=== PATIENT | female | born 2000 | race Caucasian/White ===

== ENCOUNTER 2024-03-02 11:37 | Inpatient (IN) | payer BC ==
[2024-03-11] MEDS ORDERED: CARBOPROST TROMETHAMINE 250 MCG/ML 1 ML AMP IM PRN (06:17)
[2024-03-11] MEDS ORDERED: OXYTOCIN 10 UNIT/ML 1 ML VIAL IM PRN (06:17)
[2024-03-11] MEDS ORDERED: miSOPROStoL 200 MCG TAB PO PRN (06:17)
[2024-03-11] MEDS ORDERED: METHYLERGONOVINE 0.2 MG/ML 1 ML AMP IM PRN (06:17)
[2024-03-11] MEDS ORDERED: TRANEXAMIC 1,000 MG/100ML-NACL 1,000 MG in EMPTY BAG 1 BAG IV PRN (06:17)
[2024-03-11] MEDS ORDERED: LIDOCAINE 0.5% (PF) 5 MG/ML (50 ML SDV) SQ PRN (06:17)
[2024-03-11] MEDS ORDERED: TERBUTALINE 1 MG/ML VIAL SQ PRN (06:17)
[2024-03-11] MEDS: OXYTOCIN 30 UNITS/500 ML NS 30 UNIT in SALINE 1 500ML.BAG IV SCH (06:33)
[2024-03-11] MEDS: LACTATED RINGERS 1,000 ML IV SCH (06:33)
[2024-03-11 06:40] LABS: Basophils % (A) 0 %; Eosinophils # (A) 0.2 k/uL (0-0.7); Eosinophils % (A) 2 %; HCT 44.3 % (34.0-46.0); HGB 14.8 gm/dL (11.4-16.0); Lymphocytes % (A) 15 %; MCH 28.3 pg (25.0-35.0); MCHC 33.4 g/dL (31.0-37.0); MCV 84.8 fL (80.0-100.0); Monocytes # (A) 0.6 k/uL (0-1.0); Monocytes % (A) 4 %; Neutrophils # (A) 10.2 k/uL (1.3-7.7); Neutrophils % (A) 77 %; Platelet Count 213 k/uL (150-450); RBC 5.22 m/uL (3.80-5.40); RDW 15.5 % (11.5-15.5); WBC 13.3 k/uL (3.8-10.6)
[2024-03-11] MEDS: PENICILLIN G POTASSIUM 5,000,000 UNIT in DEXTROSE 5% IN WATER 100 ML IVPB STA (07:00)
[2024-03-11] MEDS: PENICILLIN G POTASSIUM 2,500,000 UNIT in DEXTROSE 5% IN WATER 100 ML IVPB SCH (10:28)
--- NOTE | 2024-03-11 11:50 | P.HPOB ---
History of Present Illness H&P Date: 03/11/24 Chief Complaint: Induction of labor for post-dates Ms. Solorio is a 24 year old at 41 weeks and 2 days with EDC of 03/02/2024 by LMP consistent with 8 week US who presents to labor and delivery for induction of labor for post-dates . The has been essentially uncomplicated. A growth US at 32 weeks estimated the fetus to be in the 74%ile. work-up: Blood type A positive, antibody screen negative, rubella NON- IMMUNE, VDRL non-reactive, HBsAg negative, HIV negative, HCV Ab negative, gonorrhea negative, chlamydia negative, 1 hour GTT abnormal > 3 hour GTt within normal limits, GBS positive. s/p TDap and Flu vaccines. Past Medical History Additional Past Medical History / Comment(s): 2012 blood transfusion for heavy period. History of Any Multi-Drug Resistant Organisms: None Reported Additional Past Surgical History / Comment(s): Dwarf teeth Past Anesthesia/Blood Transfusion Reactions: No Reported Reaction Past Psychological History: No Psychological Hx Reported Smoking Status: Never smoker Past Drug Use History: None Reported Medications and Allergies Home Medications Medication Instructions Recorded Confirmed Type Aspirin 81 mg PO DAILY 03/11/24 03/11/24 History Folic Acid 1 mg PO DAILY 03/11/24 03/11/24 History Vit No.179/Iron/Folic 1 each PO DAILY 03/11/24 03/11/24 History [ Tablet] Allergies Allergy/AdvReac Type Severity Reaction Status Date / Time No Known Allergies Allergy Verified 03/11/24 08:26 Exam Vital Signs Temp Pulse Resp BP Pulse Ox 03/11/24 06:15 97.6 F 119 H 16 128/81 98 Intake and Output 03/10/24 03/11/24 03/11/24 22:59 06:59 14:59 Other: Weight 116.12 kg Focused physical exam is performed. This is a healthy-appearing in no apparent distress. Breathing is non-labored. Abdomen is gravid and non-tender. Cervical exam is 3 cm, 70 effacement, -2fetal station. AROM is undertaken with clear fluid noted. Extremities non-tender and non-edematous. heart tones are Category I and tocometer is graphing contractions every 2-4 minutes. Results Result Diagrams: 03/11/24 06:17 Abnormal Lab Results - Last 24 Hours (Table) 03/11/24 Range/Units 06:17 WBC 13.3 H (3.8-10.6) k/uL Neutrophils # 10.2 H (1.3-7.7) k/uL Assessment and Plan Assessment: 24 year old at 41 weeks and 2 days presenting for induction of labor Plan: Admit, NPO, pitocin per protocol, epidural prn, continuous EFM and tocometer, c lose monitoring of patient. Anticipate vaginal delivery. Time with Patient: Less than 30
[2024-03-11] MEDS ORDERED: fentaNYL (PF) 50 MCG/ML 5 ML AMP ONE (14:32)
[2024-03-11] MEDS ORDERED: SODIUM CHLORIDE 0.9% 250 ML BAG ONE (14:32)
[2024-03-11] MEDS ORDERED: ROPIVACAINE 5 MG/ML 30 ML VIAL ONE (14:32)
[2024-03-11] MEDS ORDERED: ZOLPIDEM 5 MG TAB PO PRN (22:57)
[2024-03-11] MEDS ORDERED: diphenhydrAMINE 25 MG CAP PO PRN (22:57)
[2024-03-11] MEDS ORDERED: HYDROCORTISONE 2.5% RECTAL CREAM 30 GM TUBE RECTAL PRN (22:57)
[2024-03-11] MEDS ORDERED: diphenhydrAMINE 50 MG CAP PO PRN (22:57)
[2024-03-11] MEDS ORDERED: LANOLIN CREAM 1 GM TUBE TOPICAL PRN (22:57)
[2024-03-11] MEDS ORDERED: BENZOCAINE/MENTHOL SPRAY 1 GM/SPRAY AEROSOL TOPICAL PRN (22:57)
[2024-03-11] MEDS ORDERED: diphenhydrAMINE 50 MG/ML 1 ML VIAL IVP PRN ×2 (22:57)
[2024-03-11] MEDS ORDERED: SIMETHICONE 80 MG CHEWABLE PO PRN (22:57)
--- NOTE | 2024-03-11 23:02 | P.PROBDLV ---
Vaginal Delivery Note - . Vaginal Delivery Note: DATE OF SERVICE: 03/11/2024 PROCEDURE: Normal Vaginal Delivery ATTENDING: Dr. Nohemy Steiner MD ESTIMATED BLOOD LOSS: 200 mL FINDINGS: VFI, Apgars 8/9. Weight 9 pounds and 1 ounce (4115 grams) PROCEDURE: Ms. Solorio is a 24 year old at 41 weeks and 2 days presenting to labor and delivery for induction of labor for post-dates . The has been essentially uncomplicated. For further details, please review the admitting H&P. The patient was admitted and pitocin was titrated per protocol. PCN G was administered for GBS prophylaxis. AROM was performed at 1136 revealing clear amniotic fluid. The patient received epidural anesthesia per her request. The patient was completely dilated at 1936. With pushing, the fetus initially had Category II heart tones that did improve with further decent. The patient pushed effectively and delivered a viable female infant at 2231. The was placed on the maternal abdomen and bulb suctioned. The infant was noted to be spontaneously crying. Cord was clamped and cut after a 30-second delay. The infant was handed off to the pediatric team. Placenta was delivered whole with gentle cord traction at 2234. Oxytocin was started to facilitate uterine tone. Uterine fundus was found to be firm and below the umbilicus upon fundal massage. Thorough examination of the cervix, vagina, periurethral area, and perineum revealed a second degree perineal laceration. The laceration was infiltrated with lidocaine and repaired with 2-0 Vicryl in the usual fashion. The patient is stable and allowed to begin the bonding process.
[2024-03-12] MEDS: IBUPROFEN 600 MG TAB PO PRN (04:39)
--- NOTE | 2024-03-12 06:13 | P.PNOBGVD ---
Subjective - Subjective Principal diagnosis: s/p vaginal delivery Interval history: The patient is doing well this morning and had no acute events overnight. She has no complaints this morning. She reports minimal lochia, passing flatus, voiding without difficulty, ambulating, and eating/drinking without nausea or vomiting. She is her without difficulty. She denies chest pain, shortness of breathing, fevers, or chills overnight. She denies pain or swelling in the legs. Patient reports: Reports appetite normal, Reports voiding normally, Reports pain well controlled, Reports ambulating normally : doing well, nursing well Objective - Latest Vital Signs Latest vital signs: Vital Signs Temp Pulse Resp BP BP Pulse Ox 03/12/24 04:00 98.2 F 98 18 142/90 03/12/24 00:55 97.7 F 101 H 16 119/65 100 03/12/24 00:40 97.9 F 88 16 130/81 97 03/12/24 00:25 104 H 16 128/71 97 03/12/24 00:10 98.1 F 89 18 128/71 97 03/11/24 23:55 97.8 F 92 18 125/64 98 03/11/24 23:40 88 16 121/66 99 03/11/24 23:26 98.0 F 103 H 16 129/66 99 03/11/24 23:11 97.9 F 102 H 16 129/76 97 03/11/24 06:15 97.6 F 119 H 16 128/81 98 Intake and Output 03/11/24 03/11/24 03/12/24 14:59 22:59 06:59 Intake Total 32.033 167 Output Total 50 350 Balance -17.967 -183 Intake: Intake, IV Titration 32.033 167 Amount Oxytocin 30 Units/500 ml 32.033 167 Ns 30 unit In Saline 1 500ml.bag @ Per Protocol IV .Q0M [facility] Rx#:[id number] Output: Urine 50 50 Estimated Blood Loss 200 Output, Quantitative 100 Blood Loss Other: # Voids 1 - Exam Extremities: Present: normal Abdomen: Present: normal appearance, soft Uterus: Present: normal, firm - Labs Labs: Abnormal Lab Results - Last 24 Hours (Table) 03/11/24 Range/Units 06:17 WBC 13.3 H (3.8-10.6) k/uL Neutrophils # 10.2 H (1.3-7.7) k/uL Assessment and Plan Assessment: 24 year old now PPD#1 s/p normal vaginal delivery Plan: 1. . Patient meeting all milestones appropriately. 2. Viable female . Doing well at bedside, latching well. Dispo: Anticipate discharge home tomorrow.
[2024-03-12] MEDS: SENNOSIDES-DOCUSATE SODIUM 1 EACH TAB PO SCH (08:33)
[2024-03-12 08:47] LABS: Basophils % (A) 0 %; Eosinophils # (A) 0.1 k/uL (0-0.7); Eosinophils % (A) 0 %; HCT 41.3 % (34.0-46.0); HGB 13.6 gm/dL (11.4-16.0); Lymphocytes # (A) 1.7 k/uL (1.0-4.8); Lymphocytes % (A) 10 %; MCH 28.4 pg (25.0-35.0); MCHC 32.9 g/dL (31.0-37.0); MCV 86.1 fL (80.0-100.0); Mean Platelet Volume 10.3; Monocytes # (A) 0.7 k/uL (0-1.0); Monocytes % (A) 4 %; Neutrophils # (A) 13.9 k/uL (1.3-7.7); Neutrophils % (A) 84 %; Platelet Count 190 k/uL (150-450); RBC 4.79 m/uL (3.80-5.40); RDW 15.3 % (11.5-15.5); WBC 16.5 k/uL (3.8-10.6)
[2024-03-12 09:35] VITALS: RESP 16
[2024-03-12] MEDS: MEASLES-MUMPS-RUBELLA VACC/PF 12,500 UNIT/0.5 ML VIAL SQ ONE (15:35)
[2024-03-12] MEDS: ACETAMINOPHEN TAB 325 MG TAB PO PRN (19:56)
--- NOTE | 2024-03-13 09:10 | P.DS ---
Providers Date of admission: 03/11/24 06:04 Expected date of discharge: 03/13/24 Attending physician: Nohemy Steiner MD Primary care physician: Stated None Hospital Course: Ms. Solorio is a 24 year old now PPD#2 s/p normal vaginal delivery with second degree perineal lacaeration repaired in the normal fashion. The patient is doing well this morning and had no acute events overnight. She has no complaints this morning. She reports minimal lochia, passing flatus, voiding without difficulty, ambulating, and eating/drinking without nausea or vomiting. is currently in the nursery for suspected infection, receiving IV a ntibiotics and awaiting blood culture. She denies chest pain, shortness of breathing, fevers, or chills overnight. She denies pain or swelling in the legs. restrictions are reviewed with the patient including pelvic rest for 6 weeks. The patient is encouraged to call the office if she experiences any heavy bleeding, foul-smelling discharge, breast complaints, or any if she has any other concerns. She will follow up in the office in 6 weeks for postoperative exam. She plans to take Motrin and Tylenol OTC as needed for pain. All questions are answered. Assessment: 24 year old now PPD#2 s/p normal vaginal delivery Patient Condition at Discharge: Good Plan - Discharge Summary New Discharge Prescriptions: No Action Folic Acid 1 mg PO DAILY Aspirin 81 mg PO DAILY Vit No.179/Iron/Folic [ Tablet] 1 each PO DAILY Discharge Medication List Aspirin 81 mg PO DAILY 03/11/24 [History] Folic Acid 1 mg PO DAILY 03/11/24 [History] Vit No.179/Iron/Folic [ Tablet] 1 each PO DAILY 03/11/24 [History] Follow up Appointment(s)/Referral(s): Nohemy Steiner MD [STAFF PHYSICIAN] - 04/22/24 1:45 pm Activity/Diet/Wound Care/Special Instructions: Instructions 1. Do not begin any exercise program for 3 weeks. 2. Do not resume sexual relations for 6 weeks or longer if uncomfortable. 3. You may take tub baths or showers at any time. 4. You may use tampons if desired after 6 weeks. 5. Keep any areas repaired with stitches clean and dry. 6. If you are not nursing, wear a good fitting, supportive bra during the day and limit fluid intake for at least 1 week to prevent breast engorgement. 7. Call the office, , within the next week to make appointment for your 6 week checkup if it has not already been made. 8. Report any of the following occurrences to the doctor promptly: a. Heavy, excessive bleeding b. Chills, fever c. Burning or frequency of urination d. Pain or redness and breasts if nursing e. Increasing pain or swelling of vulva (stitches). In addition to the above instructions, the following additional should be followed: 1. No heavy lifting or straining (exercising) until after 6 week checkup. 2. Keep abdominal incision clean and dry: You may wear a dressing if more comfortable. 3. Make office appointment for 2 weeks after delivery date. Discharge Disposition: HOME SELF-CARE
[2024-03-13 17:39] VITALS: BP 124/86; PULSE 81; TEMP 98.2
== END 2024-03-13 18:45 | disposition home or self-care (01) | DRG 807 ==
LOC: 4FBP 03-11 06:04
PROVIDERS: ADMIT Obstetrics & Gynecology; ATTEND Obstetrics & Gynecology
PROC: 3E033VJ Introduction of Other Hormone into Peripheral Vein, Percutaneous Approach (ICD-10-PCS; principal; 2024-03-11)
PROC: 0KQM0ZZ Repair Perineum Muscle, Open Approach (ICD-10-PCS; principal; 2024-03-11)
PROC: 10907ZC Drainage of Amniotic Fluid, Therapeutic from Products of Conception, Via Natural or Artificial Opening (ICD-10-PCS; principal; 2024-03-11)
PROC: 10E0XZZ Delivery of Products of Conception, External Approach (ICD-10-PCS; principal; 2024-03-11)
PROC: 3E0134Z Introduction of Serum, Toxoid and Vaccine into Subcutaneous Tissue, Percutaneous Approach (ICD-10-PCS; 2024-03-12)
DX: O48.0 Post-term pregnancy (principal); O70.1 Second degree perineal laceration during delivery; Z79.82 Long term (current) use of aspirin; O99.824 Streptococcus B carrier state complicating childbirth; Z28.310 Unvaccinated for COVID-19; Z23 Encounter for immunization; Z3A.41 41 weeks gestation of pregnancy; Z37.0 Single live birth
CPT/HCPCS: 85025; 86850; 86900; 86901; 90707